=== PATIENT | male | born 1935 | race Caucasian/White ===

== ENCOUNTER 2018-01-13 19:20 | Inpatient (IN) | payer OTHER ==
[~2018-01-13] VITALS: Ht 180.3 cm; Wt 66.4 kg
[~2018-01-13 19:20] MED LIST: AMLODIPINE BESY10 MG PO; ASPIRIN325 MG PO; AVAPRO300 MG PO; CALCITRIOL0.25 MCG PO; CALCIUM + D3 E1 EACH PO; CIPRO250 MG PO; DILAUDID2 MG PO; FINASTERIDE5 MG PO; FLOMAX0.4 MG PO; FUROSEMIDE40 MG PO; HYDROCHLOROTHIA25 MG PO; IRBESARTAN150 MG PO; KADIAN60 MG PO; KEFLEX500 MG PO; LEXAPRO10 MG PO; LIPITOR20 MG PO; MORPHINE SULFAT15 M1 PO; PREVACID30 MG PO; SPIRIVA RESPIMAT4 GM IH; TAMSULOSIN HCL0.4 MG PO; TOPROL XL200 MG PO; VENTOLIN HFA18 GM IH; VITAMIN B-122500 MCG SL; XANAX0.5 MG PO
[2018-01-13 20:05] LABS: BASOPHIL (%) 1.1 % (0-1); BASOPHIL COUNT 0.1 K/uL (0-0.1); EOSINOPHIL (%) 1.1 % (0-5); EOSINOPHIL COUNT 0.1 K/uL (0-0.3); HEMOGLOBIN 9.5 G/DL (12.5-16.6); IMMATURE GRANULOCYTE (%) 0.4 % (0.0-0.7); LYMPHOCYTE (%) 22.2 % (15-42); LYMPHOCYTE COUNT 1.2 K/uL (1.0-2.8); MCH 27.5 PG (29.0-34.0); MCHC 31.7 G/DL (30.0-36.0); MCV 86.7 FL (86-99); MONOCYTE (%) 8.4 % (3-12); MONOCYTE COUNT 0.5 K/uL (0-0.8); NEUTROPHIL (%) 66.8 % (45-76); NEUTROPHIL COUNT 3.6 K/uL (1.8-6.4); PLATELET COUNT 162 K/uL (156-360); RBC DIS.WIDTH-CV 13.6 % (11.8-14.6); RBC DIS.WIDTH-SD 42.3 % (39-53); RED BLOOD COUNT 3.46 M/uL (4.00-5.50); WHITE BLOOD COUNT 5.5 K/uL (4.1-10.2)
[2018-01-13 20:13] LABS: INTER. NORMALIZED RATIO 1.1
[2018-01-13 20:15] LABS: PTT 31.9 SEC (25-37)
[2018-01-13 20:19] LABS: ALBUMIN 3.8 g/dL (3.2-4.8); CHLORIDE 107 mEq/L (99-109); POTASSIUM 4.3 mEq/L (3.7-5.4); SODIUM 142 mEq/L (136-147)
[2018-01-13 20:20] LABS: AMYLASE 98 IU/L (1-118)
[2018-01-13 20:22] LABS: GLUCOSE 152 mg/dL (70-99); TOTAL PROTEIN 6.5 g/dL (6.4-8.3)
[2018-01-13 20:23] LABS: TOTAL BILIRUBIN 0.5 mg/dL (0.0-1.0)
[2018-01-13 20:24] LABS: SERUM ETHYL ALCOHOL < 10 mg/dL
[2018-01-13 20:25] LABS: ALKALINE PHOSPHATASE 109 IU/L (3-129); CREATININE 1.9 mg/dL (0.6-1.3); GFR ESTIMATE (CALCULATED) 36 mL/min/ (58.99-99999); TROP-I INTERPRETATION NEGATIVE; TROPONIN-I 0.03 ng/mL (0.0-0.30)
[2018-01-13 20:26] LABS: UREA NITROGEN (BUN) 39 mg/dL (9-23)
[2018-01-13 20:27] LABS: AST (GOT) 12 IU/L (2-34)
[2018-01-13 20:28] LABS: ALT (GPT) 8 IU/L (3-49)
[2018-01-13 20:29] LABS: LIPASE 31 U/L (1.0-51.0)
[2018-01-13 20:57] LABS: ERTH.SED.RATE 19 MM/HR (0-20)
[2018-01-13 21:24] LABS: C-REACTIVE PROTEIN < 1.0 MG/L (0-10)
[2018-01-13 22:54] LABS: APPEARANCE CLEAR ((CLEAR)); BILIRUBIN NEGATIVE; BLOOD NEGATIVE; COLOR YELLOW ((YELLOW)); GLUCOSE (STRIP) NEGATIVE; KETONES NEGATIVE; LEUKOCYTES NEGATIVE; NITRITE NEGATIVE; PROTEIN (STRIP) NEGATIVE; SPECIFIC GRAVITY 1.014 (1.000-1.030); UCUL ADDED? NO; UROBILINOGEN 0.2 MG/DL (0.2-1.0)
[2018-01-13 23:02] LABS: COCAINE NEGATIVE (150 ng/mL); PHENCYCLIDINE NEGATIVE (25 ng/mL); THC CANNABINOIDS NEGATIVE (50 ng/mL)
[2018-01-13 23:03] LABS: AMPHETAMINE NEGATIVE (500 ng/mL); BARBITURATES NEGATIVE (200 ng/mL); BENZODIAZEPINES PRESUMPTIVE POSITIVE (150 ng/mL); BUPRENORPHINE NEGATIVE (10 ng/mL); METHADONE NEGATIVE (200 ng/mL); METHAMPHETAMINE NEGATIVE (500 ng/mL); OPIATES (MORPHINE) PRESUMPTIVE POSITIVE (100 ng/mL); OXYCODONE NEGATIVE (100 ng/mL); PROPOXYPHENE NEGATIVE (300 ng/mL); TRICYCLIC ANTIDEPRESSANTS NEGATIVE (300 ng/mL)
[2018-01-13] MEDS ORDERED: FEOSOL325 MG PO (23:32)
[2018-01-13] MEDS ORDERED: IRBESARTAN150 MG PO (23:32)
[2018-01-13] MEDS ORDERED: VITAMIN D31000 UNI2 PO (23:32)
[2018-01-13] MEDS ORDERED: ROCALTROL0.25 MCG PO (23:32)
[2018-01-13 23:36] LABS: BENZODIAZEPINES, URINE SCREEN POSITIVE (200 ng/mL)
[2018-01-14 01:48] VITALS: BP 108/90
[2018-01-14 02:04] VITALS: BP 208/90
[2018-01-14 04:00] VITALS: BP 192/78
[2018-01-14 07:14] VITALS: BP 178/71
[2018-01-14 08:14] LABS: TROP-I INTERPRETATION NEGATIVE; TROPONIN-I 0.05 ng/mL (0.0-0.30)
[2018-01-14 08:15] LABS: HDL CHOLESTEROL 43 MG/DL (Desirable>=40); LDL CHOLESTEROL 46 mg/dL (Desirable<100); NON-HDL CHOLESTEROL 64 mg/dL (Desirable<160); TOTAL CHOLESTEROL 107 mg/dL (Desirable<200); TRIGLYCERIDES 92 MG/DL (Normal: <150)
[2018-01-14 12:10] VITALS: BP 173/70
[2018-01-14 13:13] LABS: HEMOGLOBIN A1c (GLYCOHEMOGLOB) 5.8 % (Below 5.7)
[2018-01-14 13:19] LABS: TROP-I INTERPRETATION NEGATIVE; TROPONIN-I 0.06 ng/mL (0.0-0.30)
[2018-01-14 15:43] VITALS: BP 128/62
[2018-01-15] VITALS: BP 153/68
[2018-01-15 05:31] VITALS: BP 188/80
[2018-01-15 05:35] LABS: HEMATOCRIT 28.3 % (38.0-50.0); HEMOGLOBIN 8.9 G/DL (12.5-16.6); MCH 27.2 PG (29.0-34.0); MCHC 31.4 G/DL (30.0-36.0); MCV 86.5 FL (86-99); PLATELET COUNT 169 K/uL (156-360); RBC DIS.WIDTH-CV 13.7 % (11.8-14.6); RBC DIS.WIDTH-SD 42.6 % (39-53); RED BLOOD COUNT 3.27 M/uL (4.00-5.50); WHITE BLOOD COUNT 5.6 K/uL (4.1-10.2)
[2018-01-15 06:01] LABS: CHLORIDE 108 MEQ/L (99-109); CREATININE 1.9 MG/DL (0.6-1.3); GFR ESTIMATE (CALCULATED) 36 mL/min/ (58.99-99999); GLUCOSE 116 mg/dL (70-99); POTASSIUM 4.1 MEQ/L (3.7-5.4); SODIUM 143 MEQ/L (136-147); UREA NITROGEN (BUN) 33 mg/dL (9-23)
[2018-01-15 07:30] VITALS: BP 156/65
[2018-01-15 14:13] VITALS: BP 154/68
== END 2018-01-15 17:35 | disposition home or self-care (01) | DRG 123 ==
LOC: EME 19:20 → EDOF 23:30 → ENRESERV 23:30 → 4EAST 01-14 01:00
PROVIDERS: Emergency Medicine; Hospitalist; Internal Medicine; Physician Assistant
DX: H53.47 Heteronymous bilateral field defects (principal); I44.2 Atrioventricular block, complete; R00.1 Bradycardia, unspecified; N18.3 Chronic kidney disease, stage 3 (moderate); I12.9 Hypertensive chronic kidney disease with stage 1 through stage 4 chronic kidney disease, or unspecified chronic kidney disease; I65.22 Occlusion and stenosis of left carotid artery; E78.5 Hyperlipidemia, unspecified; G89.29 Other chronic pain; D64.9 Anemia, unspecified; H54.62 Unqualified visual loss, left eye, normal vision right eye; K21.9 Gastro-esophageal reflux disease without esophagitis; M16.0 Bilateral primary osteoarthritis of hip; Z79.82 Long term (current) use of aspirin; Z79.899 Other long term (current) drug therapy; I73.9 Peripheral vascular disease, unspecified; M54.5 Low back pain; I25.10 Atherosclerotic heart disease of native coronary artery without angina pectoris
CPT/HCPCS: 70450; 70549; 70551; 80047; 80048; 80053; 80061; 81003; 82150; 83036; 83690; 84484; 84999; 85025; 85027; 85610; 85651; 85730; 86140; 86850; 86900; 86901; 93005; 93880; 99281; 99285; G0480; J0360; J1644; J2405